=== PATIENT | female | born 1935 | race African-American/Black ===

== ENCOUNTER 2017-01-13 00:55 | Emergency (ER) | payer MEDICARE ==
[~2017-01-13] VITALS: Ht 160 cm; Wt 89.1 kg
[~2017-01-13 00:55] MED LIST: ACET-2080 PO; ASPI81TA2 PO; FISH1CAP49 PO; GLIP5TAB11 PO; INSLAN SQ; INSU100V SQ; LATA2.5D2 OP; LOVA20TA3 PO; VERA-7 PO
[2017-01-13] MEDS ORDERED: AMLO-512 PO (01:38)
[2017-01-13] MEDS ORDERED: INSREG SQ (01:38)
[2017-01-13] MEDS ORDERED: LISI-661 PO (01:38)
[2017-01-13 01:41] LABS: GLUCOSE,POINT OF CARE 184 MG/DL (70-110)
[2017-01-13 03:45] LABS: BASOPHILS % (AUTO) 0.3 % (0.0-2.0); EOSINOPHILS % (AUTO) 0.2 % (1.0-6.0); HEMATOCRIT 33.6 % (36-46); HEMOGLOBIN 10.9 g/dL (12.0-16.0); LYMPHOCYTES # (AUTO) 2.4 K/uL (1.0-4.8); MEAN CORPUSCULAR HEMOGLOBIN 28.6 pg (26.0-34.0); MEAN CORPUSCULAR HGB CONC 32.5 G/dL (31.0-37.0); MEAN CORPUSCULAR VOLUME 88 fL (80-100); MONOCYTES # (AUTO) 1.2 K/uL (0.1-1.0); MONOCYTES % (AUTO) 8.2 % (2.0-9.0); NEUTROPHILS # (AUTO) 11.2 K/uL (1.8-7.7); NEUTROPHILS % (AUTO) 75.3 % (40.0-70.0); PLATELET COUNT (AUTO) 442 K/uL (150-450); RED BLOOD CELL COUNT(AUTO) 3.81 MIL/uL (4.00-5.20); RED CELL DISTRIBUTION WIDTH 15.4 % (11.5-14.5); WHITE BLOOD COUNT (AUTO) 14.9 K/uL (4.5-11.0)
[2017-01-13 03:49] LABS: ANION GAP 8 mmol/L (8-16); CALCIUM, TOTAL 8.8 mg/dL (8.8-10.5); CARBON DIOXIDE 25 mmol/L (22-29); CHLORIDE 101 mmol/L (98-107); CREATININE 2.28 mg/dL (0.60-1.30); GLOMERULAR FILTR. RATE CALC 25 mL/min (>60); POTASSIUM 4.3 mmol/L (3.5-5.1); SODIUM SERUM 134 mmol/L (136-145); UREA NITROGEN, BLOOD 23 mg/dL (7-18)
[2017-01-13 03:51] LABS: PROTHROMBIN TIME 10.4 SEC (9.4-11.6)
[2017-01-13 03:55] LABS: ALANINE AMINOTRANSFERASE 114 U/L (12-78); ASPARTATE AMINOTRANSFERASE 94 U/L (15-37); BILIRUBIN,TOTAL 0.7 mg/dL (0.1-1.0); CREATINE KINASE, TOTAL 75 U/L (26-192)
[2017-01-13 04:20] LABS: CREATINE KINASE MB 0.5 ng/mL (0-5)
[2017-01-13] MEDS ORDERED: BUPIVACAINE HCL/PF 0.25% 10 ML VIAL INJ ONE (05:15)
[2017-01-13] MEDS ORDERED: ACETAMINOPHEN/CODEINE 300-30 MG TABLET PO ONE (05:15)
[2017-01-13] MEDS ORDERED: IBUPROFEN 600 MG TABLET PO ONE (05:15)
[2017-01-13 08:00] VITALS: BP 118/70
== END 2017-01-13 08:28 | disposition home or self-care (01) ==
LOC: EMS 00:56
DX: S62.181A Displaced fracture of trapezoid [smaller multangular], right wrist, initial encounter for closed fracture (principal); S01.81XA Laceration without foreign body of other part of head, initial encounter; S46.912A Strain of unspecified muscle, fascia and tendon at shoulder and upper arm level, left arm, initial encounter; S46.911A Strain of unspecified muscle, fascia and tendon at shoulder and upper arm level, right arm, initial encounter; S60.222A Contusion of left hand, initial encounter; R42 Dizziness and giddiness; E11.9 Type 2 diabetes mellitus without complications; E78.00 Pure hypercholesterolemia, unspecified; I10 Essential (primary) hypertension; Z79.4 Long term (current) use of insulin; Z88.0 Allergy status to penicillin; Z79.82 Long term (current) use of aspirin; Z88.5 Allergy status to narcotic agent; Z91.013 Allergy to seafood; W23.0XXA Caught, crushed, jammed, or pinched between moving objects, initial encounter; Y93.89 Activity, other specified; Y92.89 Other specified places as the place of occurrence of the external cause; Y99.8 Other external cause status
CPT/HCPCS: 12013; 29125; 29240; 36415; 70450; 71010; 73130 ×2; 80053; 82550; 82553; 82962; 84484; 85025; 85610; 85730; 93005; 99285; J3490